=== PATIENT | male | born 1990 ===

== ENCOUNTER 2018-09-22 10:42 | Emergency (ER) | payer OTHER, SELFPAY ==
[2018-09-22 10:52] VITALS: BP 149/91; PULSE 96; RESP 16; TEMP 36.8; O2SAT 97; BMI 25.8
--- NOTE | 2018-09-22 10:56 | ED_ITS ---
HPI - Ear Problem General Chief complaint: Ear Stated complaint: CAN'T HEAR OUT OF RIGHT EAR/LEFT EAR MUFFLED Time Seen by Provider: 09/22/18 10:56 Source: patient Mode of arrival: ambulatory Limitations: no limitations History of Present Illness HPI Narrative: Otherwise healthy 28-year-old male here for evaluation of bilateral ear pain. Patient states that a couple days ago he started having pain in his right ear. He states that he has a very decreased hearing in that ear today. Now has left ear pain and decreased hearing. Also has a sore throat. No sinus congestion. No fevers. Related Data Previous Rx's Medication Instructions Recorded azithromycin See Label Instructions .ROUTE 09/22/18 .COMPLEX #6 tab fexofenadine [Meenakshi Allergy] 180 mg PO DAILY #30 tab 09/22/18 fluticasone [Flonase Allergy 1 spray NASAL DAILY #9.9 gram 09/22/18 Relief] Allergies Allergy/AdvReac Type Severity Reaction Status Date / Time aspirin Allergy Rash Verified 09/22/18 10:52 Review of Systems Constitutional Denies fever(s) Eyes Denies itchy eyes ENT Ears, Nose, Mouth, and Throat: Reports sore throat and Denies throat swelling Comments: Bilateral ear pain with loss of hearing in the right ear. Cardiovascular Denies chest pain and Denies dyspnea Respiratory Denies cough, Denies dyspnea and Denies wheezing Hematologic/Lymphatic Denies easy bleeding and Denies easy bruising Allergic/Immunologic Denies urticaria, Denies itchy eyes, Denies seasonal rhinorrhea, Denies throat swelling and Denies wheezing PFSH Medical History Healthy adult (Acute) Surgical History No pertinent past surgical history (Acute) Social History Smoking Status: Former smoker Exam Initial Vital Signs Initial Vital Signs: Vital Signs Temperature 98.2 F 09/22/18 10:52 Pulse Rate 96 H 09/22/18 10:52 Respiratory Rate 16 09/22/18 10:52 Blood Pressure 149/91 H 09/22/18 10:52 Pulse Oximetry 97 09/22/18 10:52 Const General: cooperative, healthy appearing, comfortable, well developed, well groomed and No acute distress Orientation: alert, awake and oriented x3 HENMT Head: normal to inspection and normocephalic Ears: other (Bilateral tympanic membranes are red and bulging. No rupture noticed.) Nose: external nose normal Face and sinus: normal facial exam Mouth: oral mucosae normal, oral mucosa abnormal and No trismus Throat: posterior oropharynx normal Neck Lymphatic: lymphadenopathy (Bilateral submandibular lymphadenopathy) Resp Effort & Inspection: normal respiratory effort Skin Lesions: no lesions Rashes: no rashes Neuro General: alert, awake and oriented x3 Extrem General: capillary refill normal Psych Appearance: grossly normal Course Vital Signs - 8 hr 12//18 10:52 Temperature 98.2 F Pulse Rate 96 H Respiratory Rate 16 Blood Pressure 149/91 H Pulse Oximetry 97 Medical Decision Making MDM Narrative Medical decision making narrative: Patient with history and physical exam consistent with bilateral otitis media. No signs of tympanic membrane rupture. Had a long discussion with the patient and his regarding his symptoms. Will send home with prescription for decongestants and Flonase. He was instructed to take these medications for the next 24-48 hours. If his symptoms do not improve or they worsen during this time I will also send home with a prescription for antibiotics. Patient was instructed to hold on these antibiotics unless the symptoms do worsen. He was given return precautions. He expressed understanding and agreement Discharge Plan Departure Patient Disposition: Home Clinical Impression: Otitis media Instructions: Middle Ear Infection Activity Restrictions/Additional Instructions: Recommend you take the Meenakshi and Flonase like we discussed for the next 24-48 hours. If your ymptoms worsen during this time or do not improve then start taking the antibiotics as directed. Call your primary care doctor for a follow- up. Return to the emergency department for any new or worsening symptoms Prescriptions: New azithromycin 250 mg tablet See Label Instructions .ROUTE .COMPLEX Qty: 6 RF: 0 fexofenadine [Meenakshi Allergy] 180 mg tablet 180 mg PO DAILY Qty: 30 RF: 0 fluticasone [Flonase Allergy Relief] 50 mcg/actuation spray,suspension 1 spray NASAL DAILY Qty: 9.9 RF: 0
== END 2018-09-22 11:35 | disposition home or self-care (01) ==
PROVIDERS: Emergency Provider Emergency Medicine
DX: H66.93 Otitis media, unspecified, bilateral (principal)
CPT/HCPCS: 99282

== ENCOUNTER 2019-01-23 16:31 | Emergency (ER) | payer OTHER, SELFPAY ==
[2019-01-23 16:35] VITALS: BP 154/95; PULSE 91; RESP 15; TEMP 37.1; O2SAT 98; BMI 26.6
--- NOTE | 2019-01-23 16:38 | DI.RAD.S_ITS ---
PROCEDURE: XR CHEST 2V INDICATIONS: cough for 2 weeks TECHNIQUE: 2 views of the chest were acquired. COMPARISON: None. FINDINGS: Surgical changes and devices: None. Lungs and pleura: Lungs are clear. No pleural effusions or pneumothorax. Mediastinum: Mediastinal contours are normal. Heart size is normal. Bones and chest wall: No suspicious bony abnormalities. Soft tissues appear unremarkable. IMPRESSION: No acute cardiopulmonary disease process. Dictated by: Kaya Bueno MD, PhD on 01/23/2019 at 16:46 Approved by: Kaya Bueno MD, PhD on 01/23/2019 at 16:57
--- NOTE | 2019-01-23 18:53 | ED.URI ---
HPI - URI/Sore Throat <Jenny Shay PA-C - Last Filed: 01/23/19 22:00> General Chief Complaint: Upper Respiratory Symptoms Stated Complaint: coughing past few nights Time Seen by Provider: 01/23/19 18:38 Source: patient Mode of arrival: ambulatory Limitations: no limitations History of Present Illness HPI Narrative: This generally healthy 28 male complains of 2 week history of mixed wet and dry cough. He states that he has had chest and nasal congestion, some sore throat and intermittent laryngitis. He does not have sinus pain or earache. He states he has coughed so hard he has brought up some blood tinged sputum a couple of times, and has coughed so hard he has vomited occasionally. He has not had any fever, chills, sweats. He does have allergies and is using Flonase and [id number] antihistamine daily. He states that his had bronchitis and then was diagnosed with pneumonia and has been sick for about a month. He is concerned about pneumonia because he is not getting better. He states that she was prescribed an inhaler, and he try this and it helped her immensely. He has been trying to get in to see a new PCP but his referral was not done properly and now not able to be seen soon so comes here for evaluation. He is not acutely worse today. He states that he does not have wheeze or dyspnea when not coughing. Difficult to sleep secondary to cough. He denies any recent travel or any other exposures. Immunizations up-to-date Related Data Previous Rx's Medication Instructions Recorded fexofenadine [Meenakshi Allergy] 180 mg PO DAILY #30 tab 09/22/18 fluticasone propionate [Flonase 1 spray NASAL DAILY #9.9 gram 09/22/18 Allergy Relief] albuterol sulfate 2 inhalation INHALATION Q2-6H PRN 01/23/19 #8.5 gram promethazine-codeine 5 ml PO Q4H PRN #118 ml 01/23/19 Allergies Allergy/AdvReac Type Severity Reaction Status Date / Time aspirin Allergy Rash Verified 01/23/19 16:35 Review of Systems <Jenny Shay PA-C - Last Filed: 01/23/19 22:00> Review of Systems ROS Unobtainable: All systems reviewed & are unremarkable except as noted in HPI and below PFSH <Jenny Shay PA-C - Last Filed: 01/23/19 22:00> Medical History (Updated 01/23/19 @ 19:17 by Jenny Shay PA-C) Seasonal allergies (Chronic) Healthy adult (Chronic) Surgical History (Updated 01/23/19 @ 19:17 by Jenny Shay PA-C) No pertinent past surgical history (Chronic) Social History Smoking Status: Former smoker Social History Smoking Status: Former smoker Exam <Jenny Shay PA-C - Last Filed: 01/23/19 22:00> Narrative Exam Narrative: GENERAL APPEARANCE: Patient sitting comfortably, in no distress. HEAD: No sinus TTP. EYES: PERRL, EOMI. EARS: Normal auditory canals, TMS intact minimally erythematous with normal light reflexes ORAL CAVITY: Normal oropharynx. THROAT: Clear. PND noted NECK/THYROID: Neck supple, full range of motion, shotty anterior cervical lymphadenopathy. No posterior nodes LUNGS: Clear to auscultation bilaterally, intermittent cough on exam. HEART: RRR without murmur, nl S1, S2, no S3 or S4. DERMATOLOGIC: No exanthem Initial Vital Signs Initial Vital Signs: Vital Signs Temperature 98.8 F 01/23/19 16:35 Pulse Rate 91 H 01/23/19 16:35 Respiratory Rate 15 01/23/19 16:35 Blood Pressure 154/95 H 01/23/19 16:35 Pulse Oximetry 98 01/23/19 16:35 <Bonilla Leggett DO - Last Filed: 01/24/19 06:23> Initial Vital Signs Initial Vital Signs: Vital Signs Temperature 98.8 F 01/23/19 16:35 Pulse Rate 91 H 01/23/19 16:35 Respiratory Rate 15 01/23/19 16:35 Blood Pressure 154/95 H 01/23/19 16:35 Pulse Oximetry 98 01/23/19 16:35 Course <Jenny Shay PA-C - Last Filed: 01/23/19 22:00> Orders Ordered: ED Orders 01/23/19 16:38 Chest [XR chest 2V] Stat Vital Signs - 8 hr 01/23/19 16:35 01/23/19 19:15 01/23/19 19:37 Temperature 98.8 F Pulse Rate 91 H 81 81 Respiratory Rate 15 17 Blood Pressure 154/95 H 150/106 H Blood Pressure [Right Arm] 150/106 H Pulse Oximetry 98 100 100 <Bonilla Leggett DO - Last Filed: 01/24/19 06:23> Orders Ordered: ED Orders 01/23/19 16:38 Chest [XR chest 2V] Stat Vital Signs - 8 hr 01/23/19 16:35 01/23/19 19:15 01/23/19 19:37 Temperature 98.8 F Pulse Rate 91 H 81 81 Respiratory Rate 15 17 Blood Pressure 154/95 H 150/106 H Blood Pressure [Right Arm] 150/106 H Pulse Oximetry 98 100 100 MDM - URI/Sore Throat <Jenny Shay PA-C - Last Filed: 01/23/19 22:00> Imaging Data Chest x-ray: Radiologist's impression: [place] [address] XRay Report Signed Patient: Elliot DurhamMR#: [id number] : 1990Acct:[id number] Age/Sex: 28 MDate of Service: 01/23/19 Loc: ED Accession Number: [id number] Procedure: XR chest 2V Ordering Provider: Hilary Saucedo D.O. PROCEDURE: XR CHEST 2V INDICATIONS: cough for 2 weeks TECHNIQUE: 2 views of the chest were acquired. COMPARISON: None. FINDINGS: Surgical changes and devices: None. Lungs and pleura: Lungs are clear. No pleural effusions or pneumothorax. Mediastinum: Mediastinal contours are normal. Heart size is normal. Bones and chest wall: No suspicious bony abnormalities. Soft tissues appear unremarkable. IMPRESSION: No acute cardiopulmonary disease process. 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, Seasonal allergies Upper respiratory infection Qualifiers: URI type: unspecified viral URI Qualified Code(s): J06.9 - Acute upper respiratory infection, unspecified Discharge Date/Time: 01/23/19 19:38 Interventions: ED Discharge Assessment Last Done: 01/23/19 19:37 Instructions: Allergic Rhinitis, DI for Viral Upper Respiratory Infection -- Adult, DI for Reactive Airway Disease-Adult Activity Restrictions/Additional Instructions: There was no pneumonia or acute problem found on your x-ray today, and I think that you do have a viral respiratory infection which is exacerbated by your allergies. Since her 's inhaler helped, I think that you have something called reactive airways, and asthma like reaction to allergens and infections. some people cough with this instead of wheezing like you typically find with asthmatic people. I have given you a prescription for cough syrup to take at night which may help you sleep. Also use the inhaler as often as you needed for coughing spells or tight chest. Be sure to continue your allergy medicines. Please return as we talked about if you have any acutely worsening symptoms, otherwise follow up with your new PCP next week or whenever you can get scheduled. Prescriptions: New promethazine-codeine 6.25-10 mg/5 mL syrup 5 ml PO Q4H PRN (Reason: cough) Qty: 118 RF: 0 albuterol sulfate 90 mcg/actuation HFA aerosol inhaler 2 inhalation INHALATION Q2-6H PRN (Reason: cough or wheeze) Qty: 8.5 RF: 0 No Action fexofenadine [Meenakshi Allergy] 180 mg tablet 180 mg PO DAILY Qty: 30 RF: 0 fluticasone propionate [Flonase Allergy Relief] 50 mcg/actuation spray,suspension 1 spray NASAL DAILY Qty: 9.9 RF: 0 Referrals: [facility] [Provider Group] <Bonilla Leggett DO - Last Filed: 01/24/19 06:23> Cosign ED Attending Zena Attestation: I was immediately available in the department for consultation. Documentation has been reviewed. I agree with assessment and plan.
--- NOTE | 2019-01-23 18:56 | ED_ITS ---
HPI - URI/Sore Throat <Jenny Shay PA-C - Last Filed: 01/23/19 22:00> General Chief Complaint: Upper Respiratory Symptoms Stated Complaint: coughing past few nights Time Seen by Provider: 01/23/19 18:38 Source: patient Mode of arrival: ambulatory Limitations: no limitations History of Present Illness HPI Narrative: This generally healthy 28 male complains of 2 week history of mixed wet and dry cough. He states that he has had chest and nasal congestion, some sore throat and intermittent laryngitis. He does not have sinus pain or earache. He states he has coughed so hard he has brought up some blood tinged sputum a couple of times, and has coughed so hard he has vomited occasionally. He has not had any fever, chills, sweats. He does have allergies and is using Flonase and [id number] antihistamine daily. He states that his had bronchitis and then was diagnosed with pneumonia and has been sick for about a month. He is concerned about pneumonia because he is not getting better. He states that she was prescribed an inhaler, and he try this and it helped her immensely. He has been trying to get in to see a new PCP but his referral was not done properly and now not able to be seen soon so comes here for evaluation. He is not acutely worse today. He states that he does not have wheeze or dyspnea when not coughing. Difficult to sleep secondary to cough. He denies any recent travel or any other exposures. Immunizations up-to-date Related Data Previous Rx's Medication Instructions Recorded fexofenadine [Meenakshi Allergy] 180 mg PO DAILY #30 tab 09/22/18 fluticasone propionate [Flonase 1 spray NASAL DAILY #9.9 gram 09/22/18 Allergy Relief] albuterol sulfate 2 inhalation INHALATION Q2-6H PRN 01/23/19 #8.5 gram promethazine-codeine 5 ml PO Q4H PRN #118 ml 01/23/19 Allergies Allergy/AdvReac Type Severity Reaction Status Date / Time aspirin Allergy Rash Verified 01/23/19 16:35 Review of Systems <Jenny Shay PA-C - Last Filed: 01/23/19 22:00> Review of Systems ROS Unobtainable: All systems reviewed & are unremarkable except as noted in HPI and below PFSH <Jenny Shay PA-C - Last Filed: 01/23/19 22:00> Medical History (Updated 01/23/19 @ 19:17 by Jenny Shay PA-C) Seasonal allergies (Chronic) Healthy adult (Chronic) Surgical History (Updated 01/23/19 @ 19:17 by Jenny Shay PA-C) No pertinent past surgical history (Chronic) Social History Smoking Status: Former smoker Social History Smoking Status: Former smoker Exam <Jenny Shay PA-C - Last Filed: 01/23/19 22:00> Narrative Exam Narrative: GENERAL APPEARANCE: Patient sitting comfortably, in no distress. HEAD: No sinus TTP. EYES: PERRL, EOMI. EARS: Normal auditory canals, TMS intact minimally erythematous with normal light reflexes ORAL CAVITY: Normal oropharynx. THROAT: Clear. PND noted NECK/THYROID: Neck supple, full range of motion, shotty anterior cervical lymphadenopathy. No posterior nodes LUNGS: Clear to auscultation bilaterally, intermittent cough on exam. HEART: RRR without murmur, nl S1, S2, no S3 or S4. DERMATOLOGIC: No exanthem Initial Vital Signs Initial Vital Signs: Vital Signs Temperature 98.8 F 01/23/19 16:35 Pulse Rate 91 H 01/23/19 16:35 Respiratory Rate 15 01/23/19 16:35 Blood Pressure 154/95 H 01/23/19 16:35 Pulse Oximetry 98 01/23/19 16:35 <Bonilla Leggett DO - Last Filed: 01/24/19 06:23> Initial Vital Signs Initial Vital Signs: Vital Signs Temperature 98.8 F 01/23/19 16:35 Pulse Rate 91 H 01/23/19 16:35 Respiratory Rate 15 01/23/19 16:35 Blood Pressure 154/95 H 01/23/19 16:35 Pulse Oximetry 98 01/23/19 16:35 Course <Jenny Shay PA-C - Last Filed: 01/23/19 22:00> Orders Ordered: ED Orders 01/23/19 16:38 Chest [XR chest 2V] Stat Vital Signs - 8 hr 01/23/19 16:35 01/23/19 19:15 01/23/19 19:37 Temperature 98.8 F Pulse Rate 91 H 81 81 Respiratory Rate 15 17 Blood Pressure 154/95 H 150/106 H Blood Pressure [Right Arm] 150/106 H Pulse Oximetry 98 100 100 <Bonilla Leggett DO - Last Filed: 01/24/19 06:23> Orders Ordered: ED Orders 01/23/19 16:38 Chest [XR chest 2V] Stat Vital Signs - 8 hr 01/23/19 16:35 01/23/19 19:15 01/23/19 19:37 Temperature 98.8 F Pulse Rate 91 H 81 81 Respiratory Rate 15 17 Blood Pressure 154/95 H 150/106 H Blood Pressure [Right Arm] 150/106 H Pulse Oximetry 98 100 100 MDM - URI/Sore Throat <Jenny Shay PA-C - Last Filed: 01/23/19 22:00> Imaging Data Chest x-ray: Radiologist's impression: [place] [address] XRay Report Signed Patient: Elliot DurhamMR#: [id number] : 1990Acct:[id number] Age/Sex: 28 MDate of Service: 01/23/19 Loc: ED Accession Number: [id number] Procedure: XR chest 2V Ordering Provider: Hilary Saucedo D.O. PROCEDURE: XR CHEST 2V INDICATIONS: cough for 2 weeks TECHNIQUE: 2 views of the chest were acquired. COMPARISON: None. FINDINGS: Surgical changes and devices: None. Lungs and pleura: Lungs are clear. No pleural effusions or pneumothorax. Mediastinum: Mediastinal contours are normal. Heart size is normal. Bones and chest wall: No suspicious bony abnormalities. Soft tissues appear unremarkable. IMPRESSION: No acute cardiopulmonary disease process. 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, Seasonal allergies Upper respiratory infection Qualifiers: URI type: unspecified viral URI Qualified Code(s): J06.9 - Acute upper respiratory infection, unspecified Discharge Date/Time: 01/23/19 19:38 Interventions: ED Discharge Assessment Last Done: 01/23/19 19:37 Instructions: Allergic Rhinitis, DI for Viral Upper Respiratory Infection -- Adult, DI for Reactive Airway Disease-Adult Activity Restrictions/Additional Instructions: There was no pneumonia or acute problem found on your x-ray today, and I think that you do have a viral respiratory infection which is exacerbated by your allergies. Since her 's inhaler helped, I think that you have something called reactive airways, and asthma like reaction to allergens and infections. some people cough with this instead of wheezing like you typically find with asthmatic people. I have given you a prescription for cough syrup to take at night which may help you sleep. Also use the inhaler as often as you needed for coughing spells or tight chest. Be sure to continue your allergy medicines. Please return as we talked about if you have any acutely worsening symptoms, otherwise follow up with your new PCP next week or whenever you can get scheduled. Prescriptions: New promethazine-codeine 6.25-10 mg/5 mL syrup 5 ml PO Q4H PRN (Reason: cough) Qty: 118 RF: 0 albuterol sulfate 90 mcg/actuation HFA aerosol inhaler 2 inhalation INHALATION Q2-6H PRN (Reason: cough or wheeze) Qty: 8.5 RF: 0 No Action fexofenadine [Meenakshi Allergy] 180 mg tablet 180 mg PO DAILY Qty: 30 RF: 0 fluticasone propionate [Flonase Allergy Relief] 50 mcg/actuation spray ,suspension 1 spray NASAL DAILY Qty: 9.9 RF: 0 Referrals: [facility] [Provider Group] <Bonilla Leggett DO - Last Filed: 01/24/19 06:23> Cosign ED Attending Zena Attestation: I was immediately available in the department for consultation. Documentation has been reviewed. I agree with assessment and plan.
[2019-01-23 19:15] VITALS: BP 150/106; PULSE 81; RESP 17; O2SAT 100
[2019-01-23 19:37] VITALS: BP 150/106; PULSE 81; O2SAT 100
== END 2019-01-23 19:38 | disposition home or self-care (01) ==
PROVIDERS: Emergency Provider Internal Medicine
DX: J06.9 Acute upper respiratory infection, unspecified (principal)
CPT/HCPCS: 71046; 99282; 99283

== ENCOUNTER → 2019-10-28 09:56 | Outpatient (CLI) | payer BC, SELFPAY ==
--- NOTE | 2019-10-28 09:58 | DI.RAD.S_ITS ---
PROCEDURE: XR THORACIC SPINE 3V INDICATIONS: pain, dec rom, r/o fx TECHNIQUE: 3 views of the thoracic spine were acquired. COMPARISON: None. FINDINGS: Bones: No fractures or dislocations. No suspicious bony lesions. 12 pairs of ribs are noted, and appear intact where visualized. Soft tissues: No paravertebral stripe thickening. IMPRESSION: No visualized acute fracture or dislocation. However, if clinical concern and/or pain persist, short interval imaging followup in 7-10 days is recommended, as occult injury cannot be definitively excluded. Dictated by: Tiffany Almanza M.D. on 10/28/2019 at 10:35 Approved by: Tiffany Almanza M.D. on 10/28/2019 at 11:04
== END ==
PROVIDERS: Referring Provider Physician Assistant; Visit Provider Physician Assistant
DX: M54.6 Pain in thoracic spine (principal)
CPT/HCPCS: 72072

== ENCOUNTER → 2019-11-07 16:28 | Outpatient (CLI) | payer BC, SELFPAY ==
[2019-11-07 17:24] LABS: Add Manual Diff / Slide Review NO; Basophils Absolute Auto 0 /uL (0-100); Basophils Percent Auto 0.5 % (0-2); Eosinophils Absolute Auto 100 /uL (0-450); Eosinophils Percent Auto 0.9 % (2-4); Hematocrit 43.9 % (41-53); Hemoglobin 14.9 g/dL (13.5-17.5); Lymphocytes Absolute Auto 2400 /uL (1100-4500); Lymphocytes Percent Auto 37.5 % (25-40); Mean Corpuscular Hemoglobin 29.4 PG (26-34); Mean Corpuscular Volume 86.7 fL (80-100); Monocytes Absolute Auto 600 /uL (0-900); Monocytes Percent Auto 8.5 % (3-14); Neutrophils Absolute Auto 3400 /uL (1500-7000); Neutrophils Percent Auto 52.6 % (50-75); Platelet Count 287 X10^3/uL (150-400); Red Blood Cell Count 5.07 X10^6/uL (4.5-5.9); Red Cell Distribution Width 12.9 % (11.6-14.8); White Blood Cell Count 6.5 X10^3/uL (4.5-11.0)
[2019-11-07 17:34] LABS: Hemoglobin A1C% w Est Avg Glu 5.4 % (4.0-6.0)
[2019-11-07 17:43] LABS: Alanine Aminotransferase 29 IU/L (<50); Albumin 4.8 g/dL (3.5-5.0); Albumin Globulin Ratio 1.4 (1.0-2.8); Alkaline Phosphatase 65 U/L (38-126); Aspartate Aminotransferase 24 IU/L (17-59); BUN Creatinine Ratio 21.3 (6-22); Bilirubin Total 0.2 mg/dL (0.2-1.3); Blood Urea Nitrogen 17 mg/dL (9-20); Calcium 10.4 mg/dL (8.4-10.2); Carbon Dioxide 24 mmol/L (22-32); Chloride 105 mmol/L (98-107); Cholesterol 214 mg/dL (140-199); Estimated Glomerular Filt Rate > 60.0 mL/min (>60); Globulin 3.4 g/dL (1.7-4.1); Glucose 104 mg/dL (70-100); HDL Cholesterol 41 mg/dL (40-60); HEMOLYSIS < 15 (0-50); LDL Cholesterol Calculated 140 mg/dL (<100); Potassium 4.6 mmol/L (3.4-5.1); Sodium 140 mmol/L (137-145); Total Protein 8.2 g/dL (6.3-8.2); Triglycerides 164 mg/dL (35-150)
[2019-11-07 18:13] LABS: Thyroid Stimulating Hormone 0.47 uIU/mL (0.47-4.68)
== END ==
PROVIDERS: PCP Family Medicine; Referring Provider Family Medicine; Visit Provider Family Medicine
DX: Z00.00 Encounter for general adult medical examination without abnormal findings (principal)
CPT/HCPCS: 36415; 80053; 80061; 83036; 84443; 85025